=== PATIENT | male | born 1980 | race Caucasian/White ===

== ENCOUNTER 2016-11-13 07:04 | Emergency (ER) | payer SELFPAY ==
[~2016-11-13] VITALS: Ht 170.2 cm; Wt 68.0 kg
[2016-11-13 07:44] LABS: BASOPHILS % (AUTO) 0.2 % (0.0-2.0); EOSINOPHILS % (AUTO) 0.5 % (0.0-6.0); HEMATOCRIT 40 % (39-51); HEMOGLOBIN 13.4 g/dL (13.5-17.5); LYMPHOCYTES # (AUTO) 1.3 /CMM (0.8-4.8); LYMPHOCYTES % (AUTO) 14.9 % (20.0-44.0); MEAN CORPUSCULAR HEMOGLOBIN 28 PG (26.0-33.0); MEAN CORPUSCULAR HGB CONC 34 g/dl (31.0-36.0); MEAN CORPUSCULAR VOLUME 85 fL (80-96); MONOCYTES # (AUTO) 0.3 /CMM (0.1-1.30); MONOCYTES % (AUTO) 3.8 % (2.0-12.0); NEUTROPHILS # (AUTO) 6.9 /CMM (1.8-8.9); NEUTROPHILS % (AUTO) 80.6 % (43.0-81.0); PLATELET COUNT (AUTO) 285 /CMM (150-450); RDW COEFFICIENT OF VARIATION 13.2 (11.5-15.0); RED BLOOD CELL COUNT(AUTO) 4.71 MIL/uL (4.5-6.0); WHITE BLOOD COUNT (AUTO) 8.5 K/uL (4.3-11.0)
[2016-11-13 07:56] LABS: CALCIUM, SERUM 8.9 mg/dL (8.5-10.1); POTASSIUM 4.1 mmol/L (3.5-5.1)
--- NOTE | 2016-11-13 08:00 | NUR ---
[facility]- PATIENT POSSIBLE TOOK 20 TABS OF CLONAZEPAM. PATIENT AT THIS TIME IS ASLEEP, EASILY AROUSEABLE. VSS. PT CONNECTED TO TELE MONITOR.
[2016-11-13 08:04] LABS: BILIRUBIN,DIRECT 0.1 mg/dL (0.0-0.2); BILIRUBIN,TOTAL 0.5 mg/dL (0.2-1.0); SALICYLATE 1.4 mg/dL (2.8-20.0); TOTAL PROTEIN, SERUM 8.7 g/dL (6.4-8.2)
--- NOTE | 2016-11-13 08:07 | NUR ---
PATIENT ON BED, VSS
--- NOTE | 2016-11-13 09:04 | NUR ---
PT ASLEEP, VSS
[2016-11-13 10:26] VITALS: BP 122/75
--- NOTE | 2016-11-13 14:21 | NUR ---
Patient discharged to home in stable condition. Written and verbal after care instructions given. Patient verbalizes understanding of instruction.
== END 2016-11-13 14:25 | disposition home or self-care (01) ==
LOC: ER 07:07
DX: T51.91XA Toxic effect of unspecified alcohol, accidental (unintentional), initial encounter (principal); F13.10 Sedative, hypnotic or anxiolytic abuse, uncomplicated; Y92.89 Other specified places as the place of occurrence of the external cause
CPT/HCPCS: 36415; 80048; 80076; 80329; 85025; 99284; A4606; G0480 ×2; Z7610